=== PATIENT | female | born 1945 | race Caucasian/White ===

== ENCOUNTER → 2024-04-07 15:39 | Outpatient (REF) | payer MEDICARE, OTHER, SELFPAY | LOC: PAVMRI 15:39 | PROVIDERS: ATTENDING PHYSICIAN Nurse Practitioner Adult Health; FAMILY PHYSICIAN Family Medicine | DX: D33.3 Benign neoplasm of cranial nerves (principal) | CPT/HCPCS: 70553; A9575 ==